=== PATIENT | male | born 1995 | race Two or more races ===

== ENCOUNTER 2019-01-31 12:04 | Emergency (ER) | payer OTHER ==
[~2019-01-31] VITALS: Ht 182.9 cm; Wt 70.3 kg
[2019-01-31] MEDS ORDERED: KETO10TA2 PO (15:34)
[2019-01-31] MEDS ORDERED: ALLERGY RELIEF10 M3 PO (15:34)
[2019-01-31] MEDS ORDERED: AIRBORNE EFFER1 EACH PO (15:34)
== END 2019-01-31 16:00 | disposition home or self-care (01) ==
LOC: ER 12:04
DX: B34.9 Viral infection, unspecified (principal); J32.8 Other chronic sinusitis; B09 Unspecified viral infection characterized by skin and mucous membrane lesions